=== PATIENT | male | born 1940 | race African-American/Black ===

== ENCOUNTER → 2016-08-26 | Outpatient (CLI) | payer OTHER ==
[~2016-08-26] VITALS: Ht 177.8 cm; Wt 81.6 kg
[~2016-08-26] MED LIST: ADVAIR 250-501 EACH INH; ADVAIR 500-501 EACH INH; ALEVE220 M1 PO; ALEVE220 MG PO; ASPIRIN EC81 M1 PO; CELEBREX 200 M200 M1 PO; COZAAR 50 MG TA50 M1 PO; COZAAR100 MG PO; CRESTOR10 MG PO; FOLIC ACID 1 MG1 MG PO; MEDROLDOSEPACK PO; SINGULAIR 10 MG10 M1 PO; TOPROL XL100 MG PO; TRIAMTERENE-HC1 EAC1 PO; ZYRTEC10 M2 PO
--- NOTE | ~2016-08-26 | S ---
[facility] [place] [address] SURGICAL PATH RPT PROCEDURE Name: DMITRY RASHEED Room #: REG [facility].#: [id number] Admission: 08/26/16 Date of : 40 Discharge: Report #: [id number] Path Case #: [id number] PATHOLOGY REPORT COLLECTION DATE: 08/26/2016 RECEIVED DATE: 08/26/2016 SUBMITTING PHYS: Dr. Holland George OTHER PHYS: Dr. Viola Coleman SPECIMEN(S) RECEIVED: A.Rectal polyp * * * * * * * * * * * * FINAL DIAGNOSIS: Rectal polyp: - Tubular adenoma, negative for high-grade dysplasia. (RANDI:[facility]; d/t: 08/31/16) PATHOLOGIST: Sebastián Landeros M.D. REPORT ELECTRONICALLY SIGNED BY: Sebastián Landeros M.D. DATE/TIME: 09/01/2016 11:24 * * * * * * * * * * * * GROSS PATHOLOGY: Received in formalin labeled "Dmitry Rasheed, rectal polyp," are 2 segments of marquez soft tissue measuring 0.4 x 0.3 x 0.2 cm in aggregate dimensions and ranging from 0.2 to 0.4 cm in maximum dimension. The specimen is submitted entirely in cassette A1. (KAH; 08/27/2016) CLINICAL HISTORY: Pre-op diagnosis: History of polyps Post-op diagnosis: Rectal polyp, melanosis, colon biopsy INITIAL CPT CODE(S): A; 46506 Professional services performed by [facility] at [facility], [address] [place] [address]. Technical services performed by [facility] at [address] [place] [address], [address], [place], [place] [address]. [facility] [address] [place] [address] SURGICAL PATH RPT PROCEDURE Name: DMITRY RASHEED Room #: REG [facility]#: [id number] Admission: 08/26/16 Date of : 40 Discharge: Report #: [id number] Path Case #: [id number] [place] [address] PHONE: [phone] DIRECTOR: Asa Cobb M.D. * * * END OF REPORT * * *
--- NOTE | ~2016-08-26 | P ---
[facility] [place] [address] PROCEDURE REPORT Name: WILIDMITRY Room #: REG [facility]#: [id number] Admission: 08/26/16 Attend Phys: Holland George MD Discharge: Date of : 40 Report #: [id number] THIS REPORT FOR: //name// CC: Viola George BRIEF HISTORY: The patient is a 75-year-old male with history of colon polyps for high risk surveillance colonoscopy due to history of colon polyps. PREOPERATIVE DIAGNOSIS: High risk screening colonoscopy. POSTOPERATIVE DIAGNOSES: 1. 4-5 mm polyp, rectum. 2. Moderate diffuse melanosis coli. 3. Small internal hemorrhoids. MEDICATIONS: Deep sedation with propofol per anesthesia. SPECIMEN: Rectal polyp. ESTIMATED BLOOD LOSS: 3 mL. PROCEDURE: Colonoscopy to cecum and terminal ileum with biopsy. FINDINGS: Prior to propofol sedation, procedure of colonoscopy discussed with the patient as well as potential risks, benefits, and complications. He indicates he understands and desires to proceed. With the patient in left lateral decubitus position, digital examination was completed, which revealed no abnormalities. Subsequently, the [employer] video colonoscope was introduced into the rectum, advanced under direct vision to the cecum. Done with minimal difficulty. The cecum was identified by the ileocecal valve and the appendiceal orifice. I was able to visualize the distal segment of the terminal ileum, which was inspected and noted to be unremarkable. At that point, the scope was slowly withdrawn and careful circumferential views were obtained including retroflexing the scope in the ascending colon. Upon slow withdrawal of the scope, the prep was noted to be excellent. The mucosa was intact. He was noted to have a pattern of melanosis coli to a moderate degree. Melanosis involved the entire colon and was more prominent proximally than distally. As we withdrew the scope, he was also noted to have a diffusely dilated colon consistent with chronic constipation. No strictures or obstructing lesions were seen. No additional abnormalities were noted until we reached the rectum . In the mid to distal rectum, a 5-mm sessile polyp was seen and removed with multiple biopsies. The polyp was completely removed. Upon retroflexion, small hemorrhoids were seen. Scope was withdrawn. The patient tolerated the procedure well. [address] [address] PROCEDURE REPORT Name: WILIDMITRY Room #: REG [facility].#: [id number] Admission: 08/26/16 Attend Phys: Holland George MD Discharge: Date of : 40 Report #: [id number] CONDITION OF THE PATIENT UPON DISCHARGE: Following procedure, the patient drowsy, aroused, conversant and will be discharged home when fully ambulatory. INSTRUCTIONS TO THE PATIENT AND FAMILY AT THE TIME OF DISCHARGE: We will follow up on the path of the polyps. If the polyp is an adenoma, we will have him return in 5 years. If it is not an adenoma or precancerous polyp, then there would be minimal benefit from the patient returning for colonoscopy in 10 years. Therefore, if it is not precancerous, no need to return for routine surveillance colonoscopy. Last colonoscopy was 5 years ago. Withdrawal time from the cecum was 15 minutes. <ELECTRONICALLY SIGNED> By: Holland George MD 08/27/16 1644 [id number] 1211 Holland George MD /nt
== END | disposition home or self-care (01) ==
LOC: GI 06:48
DX: Z08 Encounter for follow-up examination after completed treatment for malignant neoplasm (principal); D12.8 Benign neoplasm of rectum; Z86.010 Personal history of colon polyps; K64.8 Other hemorrhoids
CPT/HCPCS: 62110; 62900

== ENCOUNTER → 2016-10-12 | Outpatient (CLI) | payer OTHER | LOC: ULTRA 14:33 | DX: J98.11 Atelectasis (principal); M79.89 Other specified soft tissue disorders; R91.1 Solitary pulmonary nodule ==

== ENCOUNTER → 2016-12-02 | Outpatient (CLI) | payer OTHER ==
--- NOTE | ~2016-12-02 | 2DMMODE ---
[facility] [address] [place] [address] 2 D/M-MODE ECHOCARDIOGRAM Name: DMITRY RASHEED Room #: REG [facility]#: [id number] Admission: 12/02/16 Attend Phys: Dre Varela MD Discharge: Date of : 40 Date of Service: 12/02/16 1406 Report #: [id number] THIS REPORT FOR: //name// APPROVED REPORT Study performed: 12/02/2016 13:01:28 EXAM: Comprehensive 2D, Doppler, and color-flow Echocardiogram Patient Location: Out-Patient Room #: Echo lab Status: routine BSA: 2.00 HR: 64 bpm BP: 128/64 mmHg Other Information Study Quality: Good Indications Aortic Valve Disease Pacemaker Hypertension/HDD HLP. 2D Dimensions RVDd: 38.12 mm LVEF(%): 58.87 (>50%) IVSd: 11.15 (7-11mm) LVOT Diam: 20.73 (18-24mm) LVDd: 44.85 mm PWd: 10.91 (7-11mm) Ascending Ao: 34.19 (22-36mm) LVDs: 30.94 (25-40mm) Aortic Root: 34.62 mm IVC: 14.00 mm Ferreira's LVEF: 58.87 % Volumes Left Atrial Volume (Systole) Single Plane 4CH: 79.12 mL Single Plane 2CH: 58.40 mL LA ESV Index: 38.00 mL/m2 Aortic Valve AoV Peak Mati.: 1.46 m/s AO Peak Gr.: 8.55 mmHg LVOT Max P.11 mmHg LVOT Max V: 1.01 m/s GIAN Vmax: 2.34 cm2 AI Vmax: 4.13 m/s AI [place]: 2.27 m/s2 [facility] [place] [address] 2 D/M-MODE ECHOCARDIOGRAM Name: DMITRY RASHEED Room #: REG [facility]#: [id number] Admission: 12/02/16 Attend Phys: Dre Varela MD Discharge: Date of : 40 Date of Service: 12/02/16 1406 Report #: [id number] AI PHT: 529.52 ms Mitral Valve E/A Ratio: 0.5 MV Decel. Time: 241.85 ms MV E Max Mati.: 0.40 m/s MV A Mati.: 0.74 m/s MV PHT: 70.14 ms Pulmonary Valve PV Peak Mati.: 0.95 m/s PV Peak Gr.: 3.62 mmHg TN End Vmax: 1.15 m/s Pulmonary Vein P Vein S: 0.43 m/s P Vein A: 0.19 m/s P Vein D: 0.34 m/s P Vein A Dur.: 87.7 msec P Vein S/D Ratio: 1.26 Tricuspid Valve TR Peak Mati.: 2.32 m/s RAP Estimate: 5.00 mmHg TR Peak Gr.: 21.58 mmHg PA Pressure: 27.00 mmHg Left Ventricle The left ventricle is normal size. There is normal left ventricular wall thickness. The left ventricular systolic function is normal. The left ventricular ejection fraction is within the normal range. Discordant septal motion, consistant with pacemaker. LVEF is 50-55%. Grade I - abnormal relaxation pattern. Right Ventricle The right ventricle is normal size. The right ventricular systolic function is normal. Device lead is present in the right ventricle. Atria Left atrium is mildly dilated. Right atrium is dilated. Pacemaker lead is present in the right atrium. Aortic Valve The aortic valve is normal in structure. Aortic valve is calcified. Mild to moderate aortic regurgitation. There is no aortic valvular stenosis. Mitral Valve The mitral valve is normal in structure. Mild mitral regurgitation. No evidence of mitral valve stenosis. [facility] [address] [place] [address] 2 D/M-MODE ECHOCARDIOGRAM Name: DMITRY RASHEED Room #: REG [facility]#: [id number] Admission: 12/02/16 Attend Phys: Dre Varela MD Discharge: Date of : 40 Date of Service: 12/02/16 1406 Report #: [id number] Tricuspid Valve The tricuspid valve is normal in structure. There is no tricuspid valve stenosis. There is trace tricuspid regurgitation. The right atrial pressure is estimated at 5 mmHg. There is no pulmonary hypertension. Pulmonic Valve The pulmonary valve is normal in structure. Trace pulmonic regurgitation. Great Vessels S^P aortic root repair. IVC is normal in size and collapses >50% with inspiration. Pericardium There is no pericardial effusion. <Conclusion> The left ventricle is normal size. The left ventricular systolic function is normal. Discordant septal motion, consistant with pacemaker. Grade I - abnormal relaxation pattern. The right ventricle is normal size. Device lead is present in the right ventricle. Left atrium is mildly dilated. Mild to moderate aortic regurgitation. Mild mitral regurgitation. There is trace tricuspid regurgitation. The right atrial pressure is estimated at 5 mmHg. There is no pulmonary hypertension. <ELECTRONICALLY SIGNED> By: Dre Varela MD 12/02/16 1406 1406 1406 Dre Varela MD /INF
== END ==
LOC: CV 09:02
DX: I08.0 Rheumatic disorders of both mitral and aortic valves (principal); I27.2 Other secondary pulmonary hypertension; I25.10 Atherosclerotic heart disease of native coronary artery without angina pectoris

== ENCOUNTER → 2017-11-24 | Outpatient (CLI) | payer OTHER | LOC: NUC 09:41 | DX: I25.10 Atherosclerotic heart disease of native coronary artery without angina pectoris (principal); I44.7 Left bundle-branch block, unspecified; I10 Essential (primary) hypertension; E78.5 Hyperlipidemia, unspecified; Z95.0 Presence of cardiac pacemaker ==

== ENCOUNTER → 2018-11-23 | Outpatient (CLI) | payer OTHER ==
--- NOTE | 2018-11-23 13:46 | 2DMMODE ---
[facility] [place] [address] 2 D/M-MODE ECHOCARDIOGRAM Name: DMITRY RASHEED Room #: REG [facility]#: [id number] Admission: 11/23/18 Attend Phys: Dre Varela MD Discharge: Date of : 40 Date of Service: 11/23/18 1345 Report #: [id number] THIS REPORT FOR: //name// APPROVED REPORT Study performed: 11/23/2018 13:10:09 EXAM: Comprehensive 2D, Doppler, and color-flow Echocardiogram Patient Location: Out-Patient Status: routine BSA: 1.91 HR: 75 bpm BP: 118/60 mmHg Rhythm: NSR Other Information Study Quality: Excellent Indications Aortic regurgitation. Pacemaker. 2D Dimensions RVDd: 28.37 mm IVSd: 12.93 (7-11mm) LVOT Diam: 20.72 (18-24mm) LVDd: 51.08 mm PWd: 11.63 (7-11mm) LVDs: 36.28 (25-40mm) Aortic Root: 34.96 mm Volumes Left Atrial Volume (Systole) Single Plane 4CH: 57.45 mL Single Plane 2CH: 77.62 mL LA ESV Index: 37.00 mL/m2 Aortic Valve AoV Peak Mati.: 1.58 m/s AO Peak Gr.: 9.95 mmHg LVOT Max P.60 mmHg LVOT Max V: 1.07 m/s GIAN Vmax: 2.29 cm2 AI Vmax: 4.61 m/s AI [place]: 3.41 m/s2 AI PHT: 392.14 ms Mitral Valve [facility] [address] [place] [address] 2 D/M-MODE ECHOCARDIOGRAM Name: DMITRY RASHEED Room #: REG [facility]#: [id number] Admission: 11/23/18 Attend Phys: Dre Varela MD Discharge: Date of : 40 Date of Service: 11/23/18 1345 Report #: [id number] MV Decel. Time: 72.22 ms MV E Max Mati.: 0.92 m/s Pulmonary Valve PV Peak Mati.: 0.90 m/s PV Peak Gr.: 3.27 mmHg Tricuspid Valve TR Peak Mati.: 2.11 m/s RAP Estimate: 5.00 mmHg TR Peak Gr.: 17.84 mmHg PA Pressure: 23.00 mmHg Left Ventricle The left ventricle is normal size. Discordant septal motion consistent with paced rhythm. Mild concentric left ventricular hypertrophy. Left ventricular systolic function is normal. LVEF is 50-55%. This study is not technically sufficient to allow evaluation of the LV diastolic function. Right Ventricle The right ventricle is normal size. The right ventricular systolic function is normal. Pacemaker lead is present in the right ventricle. Atria Left atrium is mildly dilated. The right atrium size is normal. Aortic Valve The aortic valve is normal in structure; mildly calcified. Mild to moderate aortic regurgitation. There is no aortic valvular stenosis. Mitral Valve The mitral valve is normal in structure. Trace to mild mitral regurgitation. Tricuspid Valve The tricuspid valve is normal in structure. Mild tricuspid regurgitation. Estimated PAP is 25mmHg. Pulmonic Valve The pulmonary valve is normal in structure. Trace pulmonic regurgitation. Great Vessels The aortic root is normal in size. IVC is normal in size and collapses >50% with inspiration. [facility] [place] [address] 2 D/M-MODE ECHOCARDIOGRAM Name: WILIDMITRYEY Room #: REG [facility]#: [id number] Admission: 11/23/18 Attend Phys: Dre Varela MD Discharge: Date of : 40 Date of Service: 11/23/18 1345 Report #: [id number] Pericardium There is no pericardial effusion. <Conclusion> The left ventricle is normal size. Mild concentric left ventricular hypertrophy. Left ventricular systolic function is normal. Discordant septal motion consistent with paced rhythm. The right ventricle is normal size. Pacemaker lead is present in the right ventricle. Left atrium is mildly dilated. Mild to moderate aortic regurgitation. Trace to mild mitral regurgitation. Mild tricuspid regurgitation. Estimated PAP is 25mmHg. <ELECTRONICALLY SIGNED> By: Dre Varela MD 11/23/18 1345 D: 08/1344 44 Dre Varela MD /INF
== END ==
LOC: CV 12:06
DX: I08.3 Combined rheumatic disorders of mitral, aortic and tricuspid valves (principal); I48.91 Unspecified atrial fibrillation; Z88.8 Allergy status to other drugs, medicaments and biological substances; Z88.2 Allergy status to sulfonamides; Z95.0 Presence of cardiac pacemaker

== ENCOUNTER → 2019-01-31 | Outpatient (CLI) | payer OTHER ==
[~2019-01-31] VITALS: Ht 177.8 cm; Wt 75.0 kg
[2019-01-31 11:26] VITALS: BP 109/67
[2019-01-31 11:51] LABS: ABSOLUTE NEUTROPHILS 3.1 thou/uL (1.4-8.2); EOSINOPHILS 1.3 % (0.0-3.0); HEMATOCRIT 44.2 % (42.0-52.0); HEMOGLOBIN 13.9 gm/dL (14.0-18.0); LYMPHOCYTES 27.3 % (24.0-44.0); MCH 28.4 pg (26.0-34.0); MCHC 31.5 g/dL (28.0-37.0); MCV 90.1 fL (80.0-100.0); MONOCYTES 10.5 % (1.0-8.0); PLATELET COUNT 220 thou/uL (150-400); POLYS 59.9 % (36.0-66.0); RDW 14.3 % (10.5-14.5); WBC 5.2 thou/uL (4.0-11.0)
[2019-01-31 11:58] LABS: CALCIUM 9.6 mg/dL (8.5-10.1); POTASSIUM 3.9 mmol/L (3.5-5.1)
[2019-01-31 12:04] LABS: ALBUMIN 3.7 g/dL (3.4-5.0); APTT 32.2 Seconds (24.5-32.8); INR 1.1; PROTIME 11.4 Seconds (9.3-11.4); TOTAL BILIRUBIN 0.4 mg/dL (<0.1-1.0); TOTAL PROTEIN 7.3 g/dL (6.4-8.2)
--- NOTE | 2019-02-01 08:36 | EKG ---
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 LEAHY : 1940 Requested By: Terrance Vance Order Number: [id number] MD: Derek York Measurements Intervals [place] Rate: 72 P: 44 [place]: 218 QRS: -56 QRSD: 176 T: 115 QT: 443 QTc: 485 Interpretive Statements Atrial-sensed ventricular-paced rhythm No further analysis attempted due to paced rhythm Compared to ECG 12/01/2015 15:44:21 No significant changes Electronically Signed On 02-01-2019 8:36:27 CDT by Derek Yrok [email or web address] <ELECTRONICALLY SIGNED> By: Derek York MD, FAC 02/01/19 0836 1146 1146 Derek York MD, [facility] /EPI
== END | disposition home or self-care (01) ==
LOC: CATH 10:59
PROVIDERS: Internal Medicine Cardiovascular Disease
DX: I48.91 Unspecified atrial fibrillation (principal); Z53.8 Procedure and treatment not carried out for other reasons; I10 Essential (primary) hypertension; I25.10 Atherosclerotic heart disease of native coronary artery without angina pectoris; E78.5 Hyperlipidemia, unspecified; Z95.0 Presence of cardiac pacemaker; Z98.890 Other specified postprocedural states; J45.909 Unspecified asthma, uncomplicated; Z79.899 Other long term (current) drug therapy; Z79.01 Long term (current) use of anticoagulants

== ENCOUNTER → 2019-05-24 | Outpatient (CLI) | payer MEDICARE | LOC: SJCVC 13:52 | DX: I10 Essential (primary) hypertension (principal); I48.91 Unspecified atrial fibrillation; I35.1 Nonrheumatic aortic (valve) insufficiency; E78.00 Pure hypercholesterolemia, unspecified ==

== ENCOUNTER → 2019-06-05 | Outpatient (CLI) | payer OTHER | LOC: SJCVC 13:10 | DX: Z45.018 Encounter for adjustment and management of other part of cardiac pacemaker (principal); R94.31 Abnormal electrocardiogram [ECG] [EKG]; I48.3 Typical atrial flutter; I44.2 Atrioventricular block, complete; I25.10 Atherosclerotic heart disease of native coronary artery without angina pectoris; E78.00 Pure hypercholesterolemia, unspecified; Z79.899 Other long term (current) drug therapy ==

== ENCOUNTER → 2019-11-13 | Outpatient (CLI) | payer OTHER | LOC: SJCVC 13:04 | PROVIDERS: ATTEND Internal Medicine Cardiovascular Disease | DX: I48.0 Paroxysmal atrial fibrillation (principal); I35.1 Nonrheumatic aortic (valve) insufficiency; I10 Essential (primary) hypertension; E78.00 Pure hypercholesterolemia, unspecified; I44.2 Atrioventricular block, complete; J45.909 Unspecified asthma, uncomplicated; I25.10 Atherosclerotic heart disease of native coronary artery without angina pectoris; Z95.0 Presence of cardiac pacemaker; Z79.899 Other long term (current) drug therapy ==

== ENCOUNTER → 2020-05-20 | Outpatient (CLI) | payer OTHER | LOC: SJCVCIMAG 11:39 | PROVIDERS: ATTEND Internal Medicine Cardiovascular Disease | DX: I08.2 Rheumatic disorders of both aortic and tricuspid valves (principal); I25.10 Atherosclerotic heart disease of native coronary artery without angina pectoris; I48.92 Unspecified atrial flutter; I48.91 Unspecified atrial fibrillation; I44.2 Atrioventricular block, complete; I10 Essential (primary) hypertension; E78.00 Pure hypercholesterolemia, unspecified; Z88.8 Allergy status to other drugs, medicaments and biological substances; Z95.0 Presence of cardiac pacemaker; Z98.890 Other specified postprocedural states; Z79.899 Other long term (current) drug therapy ==

== ENCOUNTER → 2020-06-03 | Outpatient (CLI) | payer OTHER | LOC: SJCVC 13:19 | PROVIDERS: ATTEND Internal Medicine Cardiovascular Disease | DX: I25.10 Atherosclerotic heart disease of native coronary artery without angina pectoris (principal); I48.92 Unspecified atrial flutter; I44.2 Atrioventricular block, complete; E78.00 Pure hypercholesterolemia, unspecified; Z72.89 Other problems related to lifestyle; Z79.899 Other long term (current) drug therapy; Z79.01 Long term (current) use of anticoagulants; Z95.0 Presence of cardiac pacemaker; Z88.2 Allergy status to sulfonamides; Z88.1 Allergy status to other antibiotic agents; Z88.8 Allergy status to other drugs, medicaments and biological substances ==

== ENCOUNTER 2020-06-22 12:49 | Emergency (ER) | payer OTHER ==
[~2020-06-22] VITALS: Ht 177.8 cm; Wt 81.7 kg
[2020-06-22 13:56] LABS: ABSOLUTE NEUTROPHILS 5.2 thou/uL (1.4-8.2); BASOPHILS 0.6 % (0.0-2.0); EOSINOPHILS 2.7 % (0.0-3.0); HEMATOCRIT 41.1 % (42.0-52.0); HEMOGLOBIN 13.5 gm/dL (14.0-18.0); LYMPHOCYTES 16.8 % (24.0-44.0); MCH 28.8 pg (26.0-34.0); MCHC 32.9 g/dL (28.0-37.0); MCV 87.6 fL (80.0-100.0); MONOCYTES 12.1 % (1.0-8.0); PLATELET COUNT 247 thou/uL (150-400); POLYS 67.8 % (36.0-66.0); RBC 4.69 mil/uL (4.50-6.00); RDW 13.2 % (10.5-14.5); WBC 7.8 thou/uL (4.0-11.0)
[2020-06-22 14:36] LABS: CREATININE 1.3 mg/dL (0.7-1.3); POTASSIUM 3.5 mmol/L (3.5-5.1)
[2020-06-22] MEDS ORDERED: BACTRIM DS TAB1 EACH PO (14:51)
[2020-06-22 15:03] VITALS: BP 136/78
== END 2020-06-22 15:04 | disposition home or self-care (01) ==
LOC: ER 12:49
PROVIDERS: Emergency Medicine
DX: M70.21 Olecranon bursitis, right elbow (principal); I10 Essential (primary) hypertension; I25.10 Atherosclerotic heart disease of native coronary artery without angina pectoris; E78.5 Hyperlipidemia, unspecified; J45.909 Unspecified asthma, uncomplicated; Z79.899 Other long term (current) drug therapy; Z88.1 Allergy status to other antibiotic agents; Z88.8 Allergy status to other drugs, medicaments and biological substances; Y93.89 Activity, other specified

== ENCOUNTER → 2020-11-18 | Outpatient (CLI) | payer OTHER ==
[~2020-11-18] MED LIST changes: +BACTRIM DS TAB1 EACH PO
== END ==
LOC: SJCVC 13:53
PROVIDERS: ATTEND Internal Medicine Cardiovascular Disease
DX: I48.0 Paroxysmal atrial fibrillation (principal); I35.1 Nonrheumatic aortic (valve) insufficiency; I25.10 Atherosclerotic heart disease of native coronary artery without angina pectoris; I44.2 Atrioventricular block, complete; I10 Essential (primary) hypertension; E78.00 Pure hypercholesterolemia, unspecified; Z98.890 Other specified postprocedural states; Z95.0 Presence of cardiac pacemaker; Z88.8 Allergy status to other drugs, medicaments and biological substances; Z79.899 Other long term (current) drug therapy

== ENCOUNTER → 2021-05-21 | Outpatient (CLI) | payer OTHER | LOC: SJCVCIMAG 08:13 | PROVIDERS: ATTEND Internal Medicine Cardiovascular Disease | DX: I48.0 Paroxysmal atrial fibrillation (principal); I25.10 Atherosclerotic heart disease of native coronary artery without angina pectoris; I35.1 Nonrheumatic aortic (valve) insufficiency; I44.2 Atrioventricular block, complete; I10 Essential (primary) hypertension; E78.00 Pure hypercholesterolemia, unspecified; J45.909 Unspecified asthma, uncomplicated; Z88.5 Allergy status to narcotic agent; Z88.8 Allergy status to other drugs, medicaments and biological substances; Z79.899 Other long term (current) drug therapy; Z72.89 Other problems related to lifestyle; Z95.0 Presence of cardiac pacemaker ==